=== PATIENT | male | born 1960 | race Two or more races ===

== ENCOUNTER 2025-07-14 00:54 | Emergency (ER) | payer OTHER ==
[~2025-07-14] VITALS: Ht 177.8 cm; Wt 114.3 kg
[2025-07-14 00:56] VITALS: BP 118/68; RESP 20; TEMP 97.8; O2SAT 96
[2025-07-14 01:20] VITALS: PULSE 129
[2025-07-14 01:37] LABS: Hematocrit 43.3 % (41.0-53.0); Hemoglobin 14.4 g/dL (13.5-17.5); Mean Corpuscular Hemoglobin 28.5 pg (28.0-32.0); Mean Corpuscular Volume 85.8 fL (80.0-100.0); Nucleated Red Blood Cells % 0.0 %
--- NOTE | 2025-07-14 02:14 | DVH ---
CHEST RADIOGRAPH Indication: syncope Technique: Single frontal view of the chest was obtained COMPARISON: None FINDINGS: Lines and Tubes: None Lungs: Clear Pleura: No effusion. No pneumothorax. Cardiomediastinal contours: Unremarkable Bones: Unremarkable IMPRESSION: 1. No acute disease.
[2025-07-14 02:29] LABS: Alanine Aminotransferase 10 U/L (7-40); Albumin 3.8 g/dL (3.2-4.8); Alkaline Phosphatase 73 U/L (46-116); Anion Gap 5 (5-15); BUN/Creatinine Ratio 11.2 (10.0-20.0); Blood Urea Nitrogen 14 mg/dL (9-23); Calcium 9.0 mg/dL (8.7-10.4); Carbon Dioxide 27 mmol/L (20-31); Potassium 4.0 mmol/L (3.5-5.1); Sodium 141 mmol/L (136-145); Total Protein 7.5 g/dL (5.7-8.2)
[2025-07-14 02:30] LABS: Bilirubin, Total 1.3 mg/dL (0.2-1.0); Chloride 109 mmol/L (98-107); Glucose 148 mg/dL (74-106)
--- NOTE | 2025-07-14 06:36 | ECG ---
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
== END 2025-07-14 02:03 | disposition left against medical advice (07) ==
LOC: ER 00:54
DX: R55 Syncope and collapse (principal); Z79.899 Other long term (current) drug therapy
CPT/HCPCS: 36415; 71045; 80053; 83880; 84484; 85025; 85379; 93005